=== PATIENT | male | born 1970 | race Caucasian/White ===

== ENCOUNTER → 2018-02-04 | Outpatient (CLI) | payer OTHER | LOC: FIMAGING 15:01 | PROVIDERS: ATTEND Family Medicine Sports Medicine | DX: M17.12 Unilateral primary osteoarthritis, left knee (principal) ==

== ENCOUNTER → 2018-02-17 | Outpatient (CLI) | payer OTHER | LOC: FIMAGING 18:28 | PROVIDERS: ATTEND Family Medicine Sports Medicine | DX: M23.312 Other meniscus derangements, anterior horn of medial meniscus, left knee (principal); M23.322 Other meniscus derangements, posterior horn of medial meniscus, left knee; M24.10 Other articular cartilage disorders, unspecified site; M67.462 Ganglion, left knee; M25.462 Effusion, left knee ==